=== PATIENT | female | born 1965 | race Caucasian/White ===

== ENCOUNTER 2021-05-07 09:02 | Emergency (ER) | payer MEDICARE ==
[~2021-05-07] VITALS: Ht 160 cm; Wt 59.8 kg
[2021-05-07] MEDS ORDERED: CYMB60CA3 PO (10:01)
[2021-05-07] MEDS ORDERED: PRIL20TA2 PO (10:01)
[2021-05-07] MEDS ORDERED: GABA-283 PO (10:01)
[2021-05-07] MEDS ORDERED: TRAZ-257 PO (10:02)
[2021-05-07] MEDS ORDERED: PRED10PA PO (10:02)
[2021-05-07] MEDS ORDERED: HYDR12.55 PO (10:02)
[2021-05-07 11:00] VITALS: BP 112/71
== END 2021-05-07 11:08 | disposition left against medical advice (07) ==
LOC: M ED 09:02
DX: Z53.21 Procedure and treatment not carried out due to patient leaving prior to being seen by health care provider (principal)

== ENCOUNTER 2022-12-09 14:15 | Emergency (ER) | payer MEDICARE, SELFPAY ==
[~2022-12-09] VITALS: Ht 160 cm; Wt 65.9 kg
[~2022-12-09 14:15] MED LIST: CYMB60CA4 PO; GABA-283 PO; HYDR12.55 PO; PRED10PA PO; PRIL20TA2 PO; TRAZ-257 PO
[2022-12-09] MEDS ORDERED: METH2.5T48 (14:28)
[2022-12-09] MEDS ORDERED: MORPHINE 4 MG/ML 1ML VIAL IV ONE ×2 (16:35→18:10)
[2022-12-09] MEDS ORDERED: ONDANSETRON 4MG 2ML VIAL IV ONE (16:35)
[2022-12-09 17:23] LABS: BASO # 0.1 10^3/uL (0.0-0.2); BASO % 1.4 % (0.0-1.0); EOS # 0.3 10^3/uL (0.0-0.5); EOS % 4.1 % (0.0-3.0); HEMATOCRIT 41.9 % (36.0-47.0); HEMOGLOBIN 13.2 g/dl (12.0-15.5); LYMPH # 2.2 10^3/uL (1.5-5.0); LYMPH % 29.9 % (24.0-44.0); MEAN CORPUSCULAR HEMOGLOBIN 29.3 pg (27.0-33.0); MEAN CORPUSCULAR HGB CONC 31.5 g/dl (32.0-36.5); MEAN CORPUSCULAR VOLUME 92.9 fl (80.0-96.0); MONO # 0.7 10^3/uL (0.0-0.8); MONO % 9.6 % (2.0-8.0); NEUTROPHILS # 4.1 10^3/uL (1.5-8.5); NEUTROPHILS % 54.6 % (36.0-66.0); PLATELET COUNT, AUTOMATED 316 10^3/uL (150-450); RED BLOOD COUNT 4.51 10^6/uL (4.00-5.40); WHITE BLOOD COUNT 7.4 10^3/uL (4.0-10.0)
[2022-12-09] MEDS: GASTROGRAFIN SOLUTION 30ML PO SCH ×2 (17:34→18:06)
[2022-12-09 17:51] LABS: LIPASE 31 U/L (12-53)
[2022-12-09 17:57] LABS: ALBUMIN 3.9 G/DL (3.2-5.2); ALKALINE PHOSPHATASE 110 U/L (46-116); ALT/SGPT 28 U/L (7.0-40); AST/SGOT 22 U/L (<34); BILIRUBIN,DIRECT < 0.1 MG/DL (<0.4); BILIRUBIN,TOTAL 0.3 MG/DL (0.3-1.2); BLOOD UREA NITROGEN 13 MG/DL (9-23); CALCIUM LEVEL 9.7 MG/DL (8.5-10.1); CARBON DIOXIDE LEVEL 29 MMOL/L (20-31); CHLORIDE LEVEL 106 MMOL/L (98-107); CREATININE FOR GFR 0.55 MG/DL (0.55-1.30); GLOMERULAR FILTRATION RATE > 60.0 (>51); GLUCOSE, FASTING 85 MG/DL (60-100); POTASSIUM SERUM 4.1 MMOL/L (3.5-5.1); SODIUM LEVEL 142 MMOL/L (136-145); TOTAL PROTEIN 6.3 G/DL (5.7-8.2)
[2022-12-09] MEDS ORDERED: ISOVUE-370 76% 100ML VIAL As Ordered ONE (18:00)
[2022-12-09] MEDS ORDERED: FAMOTIDINE 20MG/2ML VIAL IVP ONE (18:25)
[2022-12-09] MEDS ORDERED: SUCRALFATE SUSP 1GM/10ML UD PO ONE (18:25)
[2022-12-09] MEDS ORDERED: SUCR1TA PO (20:08)
[2022-12-09 20:19] VITALS: BP 125/78
== END 2022-12-09 20:21 | disposition home or self-care (01) ==
LOC: M ED 14:15
DX: R10.13 Epigastric pain (principal); R11.2 Nausea with vomiting, unspecified; R19.7 Diarrhea, unspecified; R51.9 Headache, unspecified; M32.9 Systemic lupus erythematosus, unspecified; M51.36 Other intervertebral disc degeneration, lumbar region; Z98.84 Bariatric surgery status; Z90.49 Acquired absence of other specified parts of digestive tract; Z90.710 Acquired absence of both cervix and uterus; Z87.891 Personal history of nicotine dependence; K51.90 Ulcerative colitis, unspecified, without complications; K27.9 Peptic ulcer, site unspecified, unspecified as acute or chronic, without hemorrhage or perforation; Z88.0 Allergy status to penicillin; Z88.5 Allergy status to narcotic agent; Z79.899 Other long term (current) drug therapy
CPT/HCPCS: 74177; 80048; 80076; 83690; 85025; 96374; 96375; 96376; 99284; J2270; J2405; S0028

== ENCOUNTER → 2024-01-18 | Outpatient (REF) | payer OTHER ==
[~2024-01-18] MED LIST changes: -GABA-283 PO; +GABA-284 PO; +METH2.5T48; +SUCR1TA PO
[2024-01-18 12:42] LABS: BASO # 0.1 10^3/uL (0.0-0.2); BASO % 1.8 % (0.0-1.0); EOS # 0.2 10^3/uL (0.0-0.5); HEMATOCRIT 37.8 % (36.0-47.0); HEMOGLOBIN 12.1 g/dl (12.0-15.5); LYMPH # 2.6 10^3/uL (1.5-5.0); LYMPH % 33.1 % (24.0-44.0); MEAN CORPUSCULAR HEMOGLOBIN 31.6 pg (27.0-33.0); MEAN CORPUSCULAR VOLUME 98.7 fl (80.0-96.0); MONO # 0.4 10^3/uL (0.0-0.8); MONO % 5.3 % (2.0-8.0); NEUTROPHILS # 4.4 10^3/uL (1.5-8.5); NEUTROPHILS % 56.7 % (36.0-66.0); PLATELET COUNT, AUTOMATED 389 10^3/uL (150-450); RED BLOOD COUNT 3.83 10^6/uL (4.00-5.40); WHITE BLOOD COUNT 7.8 10^3/uL (4.0-10.0)
[2024-01-18 12:43] LABS: C REACTIVE PROTEIN QUANTITATIV < 0.40 MG/DL (<1.0)
[2024-01-18 12:44] LABS: IRON (FE) 139 UG/DL (50-170); PERCENT SATURATION 39.3 % (13.2-45.0); RHEUMATOID FACTOR QUANT 10.3 IU/ML (<14); TOTAL IRON BINDING CAPACITY 354 UG/DL (250-425)
[2024-01-18 12:45] LABS: ALBUMIN 3.9 G/DL (3.2-5.2); ALKALINE PHOSPHATASE 81 U/L (46-116); ALT/SGPT 19 U/L (7.0-40); AST/SGOT < 8 U/L (<34); BILIRUBIN,TOTAL 0.3 MG/DL (0.3-1.2); BLOOD UREA NITROGEN 15 MG/DL (9-23); CALCIUM LEVEL 8.5 MG/DL (8.5-10.1); CARBON DIOXIDE LEVEL 27 MMOL/L (20-31); CHLORIDE LEVEL 109 MMOL/L (98-107); CHOLESTEROL LEVEL 194 MG/DL (<200); CHOLESTEROL RISK RATIO 1.98 (<5); CREATININE FOR GFR 0.53 MG/DL (0.55-1.30); GLOMERULAR FILTRATION RATE > 60.0 (>51); GLUCOSE, FASTING 96 MG/DL (60-100); HDL CHOLESTEROL 97.6 MG/DL (>40); NON-HDL-C 96.4 MG/DL; POTASSIUM SERUM 4.4 MMOL/L (3.5-5.1); SODIUM LEVEL 136 MMOL/L (136-145); THYROID STIMULATING HORMONE 1.608 uIU/ML (0.55-4.78); TOTAL PROTEIN 6.3 G/DL (5.7-8.2); TRIGLYCERIDES LEVEL 52 MG/DL (<150)
[2024-01-18 12:46] LABS: FERRITIN 24.8 NG/ML (7.3-270.7)
[2024-01-18 12:47] LABS: FOLATE 13.7 NG/ML (>5.4); VITAMIN B12 LEVEL 936 PG/ML (211-911)
[2024-01-18 12:49] LABS: ERYTHROCYTE SEDIMENTATION RATE 9 mm/hr (0-30)
== END ==
LOC: M LAB REF 11:50
PROVIDERS: ATTEND Nurse Practitioner Family
DX: M06.9 Rheumatoid arthritis, unspecified (principal); E78.5 Hyperlipidemia, unspecified; L65.9 Nonscarring hair loss, unspecified

== ENCOUNTER → 2024-02-25 | Outpatient (CLI) | payer OTHER | LOC: M RAD 07:00 | PROVIDERS: ATTEND Physician Assistant | DX: Z87.891 Personal history of nicotine dependence (principal) ==

== ENCOUNTER → 2024-08-16 | Outpatient (CLI) | payer OTHER | LOC: M RAD 08:33 | PROVIDERS: ATTEND Family Medicine Addiction Medicine | DX: M54.50 Low back pain, unspecified (principal); M54.2 Cervicalgia ==

== ENCOUNTER → 2024-10-23 | Outpatient (CLI) | payer OTHER | LOC: M RAD 07:26 | PROVIDERS: ATTEND Family Medicine Addiction Medicine | DX: G89.29 Other chronic pain (principal); M48.061 Spinal stenosis, lumbar region without neurogenic claudication ==

== ENCOUNTER → 2025-02-08 | Outpatient (REF) | payer OTHER | LOC: M LAB REF 12:09 | PROVIDERS: ATTEND Family Medicine Addiction Medicine | DX: M06.9 Rheumatoid arthritis, unspecified (principal) ==

== ENCOUNTER → 2025-02-08 | Outpatient (REF) | payer OTHER ==
[2025-02-08 15:03] LABS: BASO # 0.1 10^3/uL (0.0-0.2); BASO % 2.1 % (0.0-1.0); EOS # 0.3 10^3/uL (0.0-0.5); EOS % 5.1 % (0.0-3.0); HEMATOCRIT 39.6 % (36.0-47.0); HEMOGLOBIN 12.5 g/dl (12.0-15.5); LYMPH % 35.5 % (24.0-44.0); MEAN CORPUSCULAR HEMOGLOBIN 28.9 pg (27.0-33.0); MEAN CORPUSCULAR HGB CONC 31.6 g/dl (32.0-36.5); MEAN CORPUSCULAR VOLUME 91.5 fl (80.0-96.0); MONO # 0.6 10^3/uL (0.0-0.8); MONO % 10.3 % (2.0-8.0); NEUTROPHILS # 2.7 10^3/uL (1.5-8.5); NEUTROPHILS % 46.8 % (36.0-66.0); PLATELET COUNT, AUTOMATED 362 10^3/uL (150-450); RED BLOOD COUNT 4.33 10^6/uL (4.00-5.40); WHITE BLOOD COUNT 5.7 10^3/uL (4.0-10.0)
[2025-02-08 15:17] LABS: ERYTHROCYTE SEDIMENTATION RATE 34 mm/hr (0-30)
[2025-02-08 15:39] LABS: ALBUMIN 3.7 G/DL (3.2-5.2); ALKALINE PHOSPHATASE 119 U/L (35-104); ALT/SGPT 21 U/L (7.0-40); AST/SGOT 15 U/L (<34); BILIRUBIN,TOTAL 0.3 MG/DL (0.3-1.2); BLOOD UREA NITROGEN 10 MG/DL (9-23); C REACTIVE PROTEIN QUANTITATIV < 0.50 MG/DL (<1.0); CALCIUM LEVEL 9.6 MG/DL (8.5-10.1); CARBON DIOXIDE LEVEL 28 MMOL/L (20-31); CHLORIDE LEVEL 103 MMOL/L (98-107); CHOLESTEROL LEVEL 231 MG/DL (<200); CHOLESTEROL RISK RATIO 2.44 (<5); CREATININE FOR GFR 0.51 MG/DL (0.55-1.30); FREE T4 0.96 NG/DL (0.89-1.76); GLOMERULAR FILTRATION RATE > 90.0 (>51); GLUCOSE, FASTING 89 MG/DL (60-100); HDL CHOLESTEROL 94.6 MG/DL (>40); NON-HDL-C 136.4 MG/DL; POTASSIUM SERUM 5.1 MMOL/L (3.5-5.1); SODIUM LEVEL 139 MMOL/L (136-145); TOTAL PROTEIN 6.9 G/DL (5.7-8.2); TRIGLYCERIDES LEVEL 67 MG/DL (<150)
[2025-02-08 15:40] LABS: RHEUMATOID FACTOR QUANT < 3.5 IU/ML (<14)
[2025-02-09 15:38] LABS: ANA SCREEN, IFA NEGATIVE (NEGATIVE)
[2025-02-10 01:41] LABS: SSA SJOGRENS A <1.0 NEG AI (<1.0 NEG); SSB SJOGRENS B <1.0 NEG AI (<1.0 NEG)
== END ==
LOC: M LAB REF 14:24
PROVIDERS: ATTEND Family Medicine Addiction Medicine
DX: R63.4 Abnormal weight loss (principal); M06.9 Rheumatoid arthritis, unspecified; E78.00 Pure hypercholesterolemia, unspecified

== ENCOUNTER → 2025-02-08 | Outpatient (REF) | payer OTHER | LOC: M LAB REF 11:55 | PROVIDERS: ATTEND Family Medicine Addiction Medicine | DX: M06.9 Rheumatoid arthritis, unspecified (principal); Z79.899 Other long term (current) drug therapy ==

== ENCOUNTER 2025-03-16 09:26 | Day surgery (SDC) | payer OTHER ==
[~2025-03-16] VITALS: Ht 160 cm; Wt 52.6 kg
[~2025-03-16 09:26] MED LIST changes: +HYDR-3716 PO
[2025-03-16] MEDS ORDERED: TRAZ-257 PO (10:06)
[2025-03-16] MEDS ORDERED: LIDOCAINE 2% 100MG/5ML SDV (FOR ANES.) As Ordered ONE (10:45)
[2025-03-16] MEDS ORDERED: propofoL 200 MG/20 ML VIAL As Ordered ONE (10:45)
[2025-03-16 11:02] VITALS: TEMP 96.9
[2025-03-16 11:31] VITALS: BP 124/66; O2SAT 99
[2025-03-16] MEDS: PERCOCET 5MG/325MG TAB PO ONE (11:31)
== END 2025-03-16 11:40 | disposition home or self-care (01) ==
LOC: M OPP 09:26
PROVIDERS: ATTEND Surgery
DX: K63.5 Polyp of colon (principal); K64.0 First degree hemorrhoids; K57.30 Diverticulosis of large intestine without perforation or abscess without bleeding; R63.4 Abnormal weight loss; K29.70 Gastritis, unspecified, without bleeding; B96.81 Helicobacter pylori [H. pylori] as the cause of diseases classified elsewhere; Z88.0 Allergy status to penicillin; Z88.5 Allergy status to narcotic agent; Z88.6 Allergy status to analgesic agent; Z79.891 Long term (current) use of opiate analgesic; Z79.899 Other long term (current) drug therapy; Z98.84 Bariatric surgery status; F17.290 Nicotine dependence, other tobacco product, uncomplicated

== ENCOUNTER 2025-06-30 13:17 | Emergency (ER) | payer OTHER ==
[~2025-06-30] VITALS: Ht 160 cm; Wt 56.6 kg
[2025-06-30] MEDS ORDERED: OXYC-517 (13:29)
[2025-06-30] MEDS ORDERED: OXYC-517 PO ×2 (13:54→14:03)
[2025-06-30 14:08] VITALS: BP 130/78; TEMP 98.6; O2SAT 97
== END 2025-06-30 14:09 | disposition home or self-care (01) ==
LOC: M ED 13:17
DX: Z76.0 Encounter for issue of repeat prescription (principal); Z88.0 Allergy status to penicillin; Z88.5 Allergy status to narcotic agent; Z88.6 Allergy status to analgesic agent; Z79.899 Other long term (current) drug therapy

== ENCOUNTER 2025-07-02 08:50 | Emergency (ER) | payer OTHER ==
[~2025-07-02] VITALS: Ht 160 cm; Wt 55.9 kg
[~2025-07-02 08:50] MED LIST changes: +OXYC-517; +OXYC-517 PO
[2025-07-02] MEDS: ACETAMINOPHEN *IV* 1,000 MG in IV 1 EA IV ONE (11:00)
[2025-07-02] MEDS: METHOCARBAMOL 1,000 MG/10 ML VIAL IV ONE (11:16)
[2025-07-02] MEDS: LIDOCAINE 5% PATCH TD ONE (11:44)
[2025-07-02] MEDS: MORPHINE 4 MG/ML 1 ML VIAL IV ONE ×2 (11:45→12:59)
[2025-07-02 13:23] VITALS: BP 148/75; TEMP 97.5; O2SAT 97
== END 2025-07-02 13:25 | disposition home or self-care (01) ==
LOC: M ED 08:50
DX: M54.6 Pain in thoracic spine (principal); J43.2 Centrilobular emphysema; Z88.0 Allergy status to penicillin; Z88.5 Allergy status to narcotic agent; Z88.6 Allergy status to analgesic agent; Z79.899 Other long term (current) drug therapy
CPT/HCPCS: 72128; 96374; 96375; 96376; 99284; J0131; J2800